=== PATIENT | female | born 1960 | race Caucasian/White ===

== ENCOUNTER 2016-08-03 15:46 | Emergency (ER) | payer OTHER ==
[~2016-08-03 15:46] MED LIST: ALBUTEROL SULF8.5 GM IH; ASPIR-LOW81 MG PO; Ambien PO; BACLOFEN20 MG PO; BENICAR20 MG PO; CELEBREX200 MG PO; CLONAZEPAM1 MG PO; DURAGESIC25 MCG TD; DURAGESIC50 MCG TD; Desyrel PO; ENDOCET 5-3251 EACH PO; Ecotrin PO; FENTANYL1 EAC1 TD; FLEXERIL10 MG PO; Habitrol,Nicoderm CQ TD; KLONOPIN1 M1 PO; KLONOPIN1 MG PO; KlonoPIN PO; LEXAPRO20 MG PO; LISINOPRIL10 MG PO; METFORMIN HCL500 MG PO; Miralax, Glycolax PO; NEURONTIN300 MG PO; OXYCODONE HCL15 MG PO; PERCOCET 10/1 TABLET PO; PERCOCET 5/31 TABLET PO; PERI-COLACE TA1 EACH PO; PRAVACHOL40 MG PO; PRAZOSIN HCL1 MG PO; PRAZOSIN PO; PREDNISONE20 MG PO; PRISTIQ50 MG PO; Pravachol PO; SENNA PLUS TAB1 EACH PO; SEROQUEL XR150 MG PO; SEROQUEL XR200 MG PO; SEROQUEL XR50 MG PO; SEROQUEL200 MG PO; TRAMADOL HCL50 MG PO; Ultram PO; VALIUM5 MG PO; Voltaren PO; WELLBUTRIN100 MG PO; ZESTRIL,PRINIVI20 MG PO; ZOFRAN4 MG PO; ZYBAN150 MG PO; Zoloft PO
[2016-08-03 16:12] LABS: EOSINOPHIL (%) 1.5 % (0-5); EOSINOPHIL COUNT 0.1 K/uL (0-0.3); HEMATOCRIT 43.4 % (36.0-46.0); IMMATURE GRANULOCYTE (%) 0.3 % (0.0-0.7); IMMATURE GRANULOCYTE COUNT 0.2 K/uL; MCH 36.1 PG (29.0-34.0); MCHC 35.9 G/DL (30.0-36.0); MCV 100.5 FL (83-99); MEAN PLAT.VOLUME 8.5 uM^3 (9.5-12.4); MONOCYTE (%) 6.3 % (3-12); MONOCYTE COUNT 0.5 K/uL (0-0.8); NEUTROPHIL (%) 63.7 % (45-76); NEUTROPHIL COUNT 4.5 K/uL (1.8-6.4); PLATELET COUNT 283 K/uL (156-360); RBC DIS.WIDTH-CV 12.3 % (11.8-14.6); RBC DIS.WIDTH-SD 44.1 % (39-53); RED BLOOD COUNT 4.32 M/uL (3.80-5.20); WHITE BLOOD COUNT 7.1 K/uL (4.1-10.2)
[2016-08-03 16:22] LABS: AMYLASE 70 IU/L (1-118); CHLORIDE 103 mEq/L (99-109); POTASSIUM 4.1 mEq/L (3.7-5.4); SODIUM 137 mEq/L (136-147)
[2016-08-03 16:24] LABS: GLUCOSE 93 mg/dL (70-99)
[2016-08-03 16:25] LABS: ANION GAP 13 MEQ/L (2-14)
[2016-08-03 16:27] LABS: SERUM ETHYL ALCOHOL 217 mg/dL
[2016-08-03 16:28] LABS: GFR ESTIMATE (CALCULATED) > 59 mL/min/
[2016-08-03 16:29] LABS: UREA NITROGEN (BUN) 22 mg/dL (9-23)
[2016-08-03 16:31] LABS: LIPASE 28 U/L (1.0-51.0)
[2016-08-03 16:37] LABS: QUANTITATIVE HCG < 4.0 MIU/ML
[2016-08-03 18:29] LABS: ADD MIUA? YES; BILIRUBIN NEGATIVE; BLOOD SMALL; COLOR STRAW ((YELLOW)); GLUCOSE (STRIP) NEGATIVE; KETONES NEGATIVE; LEUKOCYTES NEGATIVE; PROTEIN (STRIP) NEGATIVE; UROBILINOGEN 0.2 MG/DL (0.2-1.0)
[2016-08-03 18:33] LABS: BACTERIA NONE SEEN /HPF; EPITHELIAL CELLS 1+ /HPF; MUCUS NONE SEEN /LPF; NITRITE NEGATIVE; RED BLOOD CELLS 0-5 /HPF (0-5); UCUL ADDED? NO; WHITE BLOOD CELLS 0-5 /HPF (0-5)
[2016-08-03 18:41] LABS: AMPHETAMINE NEGATIVE (500 ng/mL); BARBITURATES NEGATIVE (200 ng/mL); BENZODIAZEPINES NEGATIVE (150 ng/mL); COCAINE NEGATIVE (150 ng/mL); INTERNAL CONTROLS VALID? YES; METHADONE NEGATIVE (200 ng/mL); METHAMPHETAMINE NEGATIVE (500 ng/mL); OPIATES (MORPHINE) NEGATIVE (100 ng/mL); OXYCODONE PRESUMPTIVE POSITIVE (100 ng/mL); PHENCYCLIDINE NEGATIVE (25 ng/mL); PROPOXYPHENE NEGATIVE (300 ng/mL); THC CANNABINOIDS NEGATIVE (50 ng/mL); TRICYCLIC ANTIDEPRESSANTS NEGATIVE (300 ng/mL)
[2016-08-03] MEDS ORDERED: LIBRIUM25 MG PO ×2 (21:51→22:45)
== END 2016-08-03 23:01 | disposition home or self-care (01) ==
LOC: EME 15:46 → TRA 15:46 → EME 23:01
PROVIDERS: Emergency Medicine
PROC: 0HQ0XZZ Repair Scalp Skin, External Approach (ICD-10-PCS; principal; 2016-08-03)
DX: S01.01XA Laceration without foreign body of scalp, initial encounter (principal); T14.8 Other injury of unspecified body region; M25.551 Pain in right hip; M25.552 Pain in left hip; W10.9XXA Fall (on) (from) unspecified stairs and steps, initial encounter; F10.129 Alcohol abuse with intoxication, unspecified; F33.2 Major depressive disorder, recurrent severe without psychotic features; M54.9 Dorsalgia, unspecified; M54.2 Cervicalgia; S29.9XXA Unspecified injury of thorax, initial encounter; R10.9 Unspecified abdominal pain; R41.82 Altered mental status, unspecified; R53.1 Weakness; G89.29 Other chronic pain; Z79.891 Long term (current) use of opiate analgesic
CPT/HCPCS: 70450; 71260; 72125; 74177; 80048; 81003; 82150; 83690; 84702; 85025; 86850; 86900; 86901; 90839; 99281; 99285; G0480; J1885

== ENCOUNTER 2016-09-22 19:37 | Inpatient (IN) | payer OTHER ==
[~2016-09-22] VITALS: Ht 165.1 cm; Wt 63.0 kg
[~2016-09-22 19:37] MED LIST changes: +LIBRIUM25 MG PO
[2016-09-22 21:00] LABS: BASOPHIL COUNT 0.1 K/uL (0-0.1); EOSINOPHIL (%) 2.2 % (0-5); EOSINOPHIL COUNT 0.2 K/uL (0-0.3); HEMATOCRIT 42.4 % (36.0-46.0); IMMATURE GRANULOCYTE (%) 0.7 % (0.0-0.7); IMMATURE GRANULOCYTE COUNT 0.1 K/uL; INSTRUMENT ABS NEUTROPHIL CT 4.8 K/uL; LYMPHOCYTE COUNT 1.4 K/uL (1.0-2.8); MCH 34.8 PG (29.0-34.0); MCHC 34.2 G/DL (30.0-36.0); MCV 101.7 FL (83-99); MEAN PLAT.VOLUME 8.7 uM^3 (9.5-12.4); MONOCYTE (%) 6.5 % (3-12); MONOCYTE COUNT 0.5 K/uL (0-0.8); NEUTROPHIL (%) 69.4 % (45-76); NEUTROPHIL COUNT 4.8 K/uL (1.8-6.4); PLATELET COUNT 290 K/uL (156-360); RBC DIS.WIDTH-CV 13.2 % (11.8-14.6); RBC DIS.WIDTH-SD 49.8 % (39-53); RED BLOOD COUNT 4.17 M/uL (3.80-5.20); WHITE BLOOD COUNT 6.9 K/uL (4.1-10.2)
[2016-09-22 21:08] LABS: CHLORIDE 110 mEq/L (99-109); POTASSIUM 3.9 mEq/L (3.7-5.4); SODIUM 142 mEq/L (136-147)
[2016-09-22 21:11] LABS: GLUCOSE 104 mg/dL (70-99)
[2016-09-22 21:12] LABS: ANION GAP 15 MEQ/L (2-14)
[2016-09-22 21:13] LABS: TOTAL BILIRUBIN 0.2 mg/dL (0.0-1.0)
[2016-09-22 21:14] LABS: ALKALINE PHOSPHATASE 83 IU/L (3-129); GFR ESTIMATE (CALCULATED) > 59 mL/min/
[2016-09-22 21:15] LABS: UREA NITROGEN (BUN) 26 mg/dL (9-23)
[2016-09-22 21:18] LABS: LIPASE 28 U/L (1.0-51.0)
[2016-09-22 21:43] LABS: ADD MIUA? YES; BILIRUBIN NEGATIVE; BLOOD NEGATIVE; COLOR YELLOW ((YELLOW)); GLUCOSE (STRIP) NEGATIVE; KETONES NEGATIVE; LEUKOCYTES TRACE; NITRITE POSITIVE; PROTEIN (STRIP) NEGATIVE; SPECIFIC GRAVITY 1.014 (1.000-1.030); UROBILINOGEN 0.2 MG/DL (0.2-1.0)
[2016-09-22 21:46] LABS: SAMPLE HEMOLYSIS CHECK 0; SAMPLE ICTERIC CHECK 0; SAMPLE LIPEMIA CHECK 0
[2016-09-22 21:49] LABS: BACTERIA RARE /HPF; EPITHELIAL CELLS 1+ /HPF; GRANULAR CASTS 0-5 /LPF; MUCUS TRACE /LPF; RED BLOOD CELLS 0-5 /HPF (0-5); WHITE BLOOD CELLS 15-20 /HPF (0-5)
[2016-09-22] MEDS ORDERED: SEROQUEL50 MG PO (23:47)
[2016-09-22] MEDS ORDERED: MINIPRESS1 MG PO (23:48)
[2016-09-22] MEDS ORDERED: EX-LAX15 MG PO (23:49)
[2016-09-22] MEDS ORDERED: FETZIMA80 MG PO (23:50)
[2016-09-22] MEDS ORDERED: CLONIDINE HCL0.1 MG PO (23:50)
[2016-09-22] MEDS ORDERED: ENDOCET 5-3251 EACH PO (23:51)
[2016-09-22] MEDS ORDERED: SYMBICORT60 INHALAT IH (23:51)
[2016-09-23 07:30] VITALS: BP 117/89
[2016-09-23 15:59] VITALS: BP 146/98
[2016-09-23 22:28] VITALS: BP 122/84
[2016-09-24 04:20] VITALS: BP 176/85
[2016-09-24 06:36] LABS: HEMATOCRIT 35.8 % (36.0-46.0); MCH 34.4 PG (29.0-34.0); MCV 104.4 FL (83-99); MEAN PLAT.VOLUME 9.1 uM^3 (9.5-12.4); PLATELET COUNT 219 K/uL (156-360); RBC DIS.WIDTH-CV 13.1 % (11.8-14.6); RBC DIS.WIDTH-SD 50.2 % (39-53); RED BLOOD COUNT 3.43 M/uL (3.80-5.20)
[2016-09-24 06:50] LABS: ANION GAP 9 MEQ/L (2-14); C-REACTIVE PROTEIN 3.8 MG/L (0-10); CHLORIDE 108 MEQ/L (99-109); GFR ESTIMATE (CALCULATED) > 59 mL/min/; GLUCOSE 95 mg/dL (70-99); POTASSIUM 3.9 MEQ/L (3.7-5.4); SAMPLE HEMOLYSIS CHECK 0; SAMPLE ICTERIC CHECK 0; SAMPLE LIPEMIA CHECK 0; SODIUM 140 MEQ/L (136-147); UREA NITROGEN (BUN) 14 mg/dL (9-23)
[2016-09-24 07:32] VITALS: BP 123/88
[2016-09-24 08:37] LABS: ERTH.SED.RATE 6 MM/HR (0-30)
[2016-09-24 15:25] VITALS: BP 138/85
[2016-09-24 23:31] LABS: INTERNAL CONTROL VALID? YES
[2016-09-24 23:45] VITALS: BP 133/87
[2016-09-25] LABS: C DIFF TOXIN NEGATIVE (NEGATIVE)
[2016-09-25 00:06] LABS: PROBE CHECK PASS; SPECIMEN PROCESSING CONTROL PASS
[2016-09-25 06:58] LABS: HEMATOCRIT 34.2 % (36.0-46.0); MCH 34.9 PG (29.0-34.0); MCHC 33.3 G/DL (30.0-36.0); MCV 104.6 FL (83-99); MEAN PLAT.VOLUME 8.9 uM^3 (9.5-12.4); PLATELET COUNT 220 K/uL (156-360); RBC DIS.WIDTH-CV 13.1 % (11.8-14.6); RBC DIS.WIDTH-SD 50.4 % (39-53); RED BLOOD COUNT 3.27 M/uL (3.80-5.20); WHITE BLOOD COUNT 5.5 K/uL (4.1-10.2)
[2016-09-25 07:17] LABS: ANION GAP 7 MEQ/L (2-14); CHLORIDE 105 MEQ/L (99-109); GFR ESTIMATE (CALCULATED) > 59 mL/min/; GLUCOSE 93 mg/dL (70-99); POTASSIUM 3.9 MEQ/L (3.7-5.4); SAMPLE HEMOLYSIS CHECK 0; SAMPLE ICTERIC CHECK 0; SAMPLE LIPEMIA CHECK 0; SODIUM 138 MEQ/L (136-147); UREA NITROGEN (BUN) 9 mg/dL (9-23)
[2016-09-25 08:19] VITALS: BP 118/83
[2016-09-25 22:46] VITALS: BP 115/83
[2016-09-26 06:45] LABS: HEMATOCRIT 33.5 % (36.0-46.0); MCH 35.5 PG (29.0-34.0); MCHC 34.3 G/DL (30.0-36.0); MCV 103.4 FL (83-99); MEAN PLAT.VOLUME 8.9 uM^3 (9.5-12.4); PLATELET COUNT 218 K/uL (156-360); RBC DIS.WIDTH-CV 12.7 % (11.8-14.6); RBC DIS.WIDTH-SD 48.4 % (39-53); RED BLOOD COUNT 3.24 M/uL (3.80-5.20)
[2016-09-26 07:37] VITALS: BP 152/98
[2016-09-26 16:29] VITALS: BP 152/78
[2016-09-26 23:35] VITALS: BP 129/80
[2016-09-27 07:00] VITALS: BP 123/81
[2016-09-27 07:40] LABS: HEMATOCRIT 35.3 % (36.0-46.0); MCH 35.3 PG (29.0-34.0); MCV 103.8 FL (83-99); MEAN PLAT.VOLUME 9.2 uM^3 (9.5-12.4); PLATELET COUNT 229 K/uL (156-360); RBC DIS.WIDTH-CV 12.8 % (11.8-14.6); RBC DIS.WIDTH-SD 48.8 % (39-53); WHITE BLOOD COUNT 5.4 K/uL (4.1-10.2)
[2016-09-27 08:48] LABS: ALKALINE PHOSPHATASE 64 IU/L (3-129); ANION GAP 6 MEQ/L (2-14); CHLORIDE 107 MEQ/L (99-109); GFR ESTIMATE (CALCULATED) 55 mL/min/; GLUCOSE 122 mg/dL (70-99); POTASSIUM 3.8 MEQ/L (3.7-5.4); SAMPLE HEMOLYSIS CHECK 0; SAMPLE ICTERIC CHECK 0; SAMPLE LIPEMIA CHECK 0; SODIUM 142 MEQ/L (136-147); TOTAL BILIRUBIN 0.4 MG/DL (0.0-1.0); UREA NITROGEN (BUN) 7 mg/dL (9-23)
[2016-09-27 15:38] VITALS: BP 139/76
[2016-09-27 22:36] VITALS: BP 120/76
[2016-09-28 00:35] LABS: ADD MIUA? NO; BILIRUBIN NEGATIVE; BLOOD NEGATIVE; COLOR STRAW ((YELLOW)); GLUCOSE (STRIP) 50; KETONES NEGATIVE; LEUKOCYTES NEGATIVE; NITRITE NEGATIVE; PROTEIN (STRIP) NEGATIVE; SPECIFIC GRAVITY 1.003 (1.000-1.030); UCUL ADDED? NO; UROBILINOGEN 0.2 MG/DL (0.2-1.0)
[2016-09-28 07:23] VITALS: BP 128/79
[2016-09-28] MEDS ORDERED: FLAGYL500 MG PO (15:18)
[2016-09-28] MEDS ORDERED: DIFLUCAN100 MG PO (15:18)
[2016-09-28] MEDS ORDERED: FLUCONAZOLE100 MG PO (15:18)
[2016-09-28] MEDS ORDERED: CIPRO500 MG PO (15:18)
[2016-09-28] MEDS ORDERED: LISINOPRIL10 MG PO (15:18)
[2016-09-28] MEDS ORDERED: OXYCODONE HCL15 MG PO ×2 (15:18→15:33)
[2016-09-28] MEDS ORDERED: NICOTINE PATCH1 EAC2 TD (15:18)
[2016-09-28] MEDS ORDERED: KLONOPIN1 MG PO (15:26)
[2016-09-28 15:27] VITALS: BP 160/99
== END 2016-09-28 19:01 | disposition home or self-care (01) | DRG 392 ==
LOC: EME 19:37 → EDOF 09-23 00:05 → 5EAST 09-23 00:05
PROVIDERS: Internal Medicine; Internal Medicine Gastroenterology; Physician Assistant; Urology
DX: K52.9 Noninfective gastroenteritis and colitis, unspecified (principal); I10 Essential (primary) hypertension; E78.5 Hyperlipidemia, unspecified; N39.0 Urinary tract infection, site not specified; K76.0 Fatty (change of) liver, not elsewhere classified; E86.0 Dehydration; G89.29 Other chronic pain; M54.9 Dorsalgia, unspecified; R10.9 Unspecified abdominal pain; F32.9 Major depressive disorder, single episode, unspecified; D12.2 Benign neoplasm of ascending colon; D12.3 Benign neoplasm of transverse colon; D12.5 Benign neoplasm of sigmoid colon; B37.81 Candidal esophagitis; K29.60 Other gastritis without bleeding; K59.00 Constipation, unspecified; K62.3 Rectal prolapse; J44.9 Chronic obstructive pulmonary disease, unspecified; F17.210 Nicotine dependence, cigarettes, uncomplicated
CPT/HCPCS: 74000; 74177; 80053; 80069; 81003; 82010; 82800; 83605; 83630; 83690; 85025; 85027; 85651; 86140; 87177; 87493; 87506; 88305; 88342 TC; 94640; 94640 76; 99281; 99285; J0744; J1170; J1650; J1885; J2250; J2270; J2405; J3010; J7030; S0030